=== PATIENT | male | born 1955 | race Caucasian/White ===

== ENCOUNTER 2016-12-25 07:32 | Day surgery (SDC) | payer OTHER ==
--- NOTE | 2016-12-20 14:46 | PREOPHP ---
DATE OF ADMISSION: 12/25/2016 HISTORY OF PRESENT ILLNESS: This is a 61-year-old patient who is admitted for elective surgery for mature cataract surgery of the left eye. The patient has had decreased vision in his eye for approximately one year time. Five years ago the patient underwent cataract surgery in the right eye with good visual result. The patient has a one year history of non-insulin dependent diabetes mellitus and has systemic hypertension. MEDICATIONS: Includes Metformin, Atorvastatin and Losartan, potassium chloride and aspirin (discontinued one week prior to surgery). ALLERGIES: THERE ARE NO KNOWN ALLERGIES. EXAMINATION: EYES: On examination, the visual acuity with best correction is 20/25 in the right eye and hand motions vision in the left eye. Slit lamp examination reveals a posterior chamber intraocular lens in appropriate position in the right eye, and a mature cataract in the left eye. Applanation tonometry 16 mmHg. Examination of the retina in the left eye cannot be seen due to the mature nature of the cataract. The retinal examination in the right eye appears within normal limits. DIAGNOSIS: Mature cataract, left eye. PLAN: Cataract extraction with lens implant, left eye. The risks and alternatives of the surgery have been discussed with the patient as well as the inability to prognosticate visual outcome, due to the inability to visualize the retina. The patient understands this, and agrees to proceed with surgery in hopes of improving visual acuity, leading to greater ability to perform activities of daily living. Dictated By: Rajesh Isaac MD /[email or web address] /Document#: [id number]
[2016-12-25] VITALS (8 sets, daily range): BP systolic 118–143; BP diastolic 79–89; PULSE 66–74; RESP 13–24; Ht 167.6 cm; Wt 103.2 kg
[~2016-12-25] VITALS: Ht 167.6 cm; Wt 103.2 kg
[~2016-12-25 07:32] MED LIST: ATROPINE 1 MG/10 ML SYRINGE IV PRN; CIPROFLOXACIN 0.3% 2.5 ML OPH OPER SCH; CYCLOPENTOLATE/PHENYLEPH 2 ML OPH OPER SCH; DICLOFENAC 0.1% 2.5 ML OPH OPER SCH; DIPHENHYDRAMINE 50 MG INJ IV PRN; EPHEDrine SULFATE 50 MG/5 ML SYG IV PRN; FENTAnyl 50 MCG/ML VIAL IV PRN; HYDROmorphONE (0.2 MG/ML) 10ML SYG IV PRN; LABETALOL HCL 20MG INJ IV PRN; LIDOCAINE 2% (SDV) 5 ML INJ ONE; MEPERIDINE 25 MG INJ IV PRN; MIDAZOLAM 1 MG/ML 2 ML INJ IV PRN; ONDANSETRON 4 MG INJ IV PRN; OXYCODONE/ACETAMINOPHEN (5/325) TAB PO PRN; PROPOFOL 200 MG INJ ONE; TROPICAMIDE 1% 3ML OPH OPER SCH; hydrALAzine 20 MG INJ IV PRN; morphine (1 MG/ML) 10ML SYRINGE IV PRN
[2016-12-25] MEDS ORDERED: LOSA25TA5 PO (08:13)
[2016-12-25] MEDS ORDERED: ASPI-664 PO (08:14)
[2016-12-25] MEDS ORDERED: METF500T4 PO (08:15)
--- NOTE | 2016-12-25 08:18 | HPN ---
Date/Time of Note Date/Time of Note DATE: 12/25/16 TIME: 08:17 Interval H&P Admission Note Pt. seen H&P reviewed: No system changes KASHIF SMITH MD Dec 25, 2016 08:18
[2016-12-25] MEDS ORDERED: EPINEPHrine 1 MG INJ ONE (09:25)
[2016-12-25] MEDS ORDERED: CEFAZOLIN 1 GM INJ ONE (09:25)
[2016-12-25] MEDS ORDERED: CARBACHOL 0.01% 1.5 ML OPH INJ ONE (09:25)
[2016-12-25] MEDS ORDERED: DEXAMETHASONE 4 MG/ML 1 ML INJ ONE (09:25)
[2016-12-25] MEDS ORDERED: GENTAMICIN 80 MG INJ ONE (09:26)
[2016-12-25] MEDS ORDERED: LIDOCAINE 4% (MPF) 5 ML INJ ONE (11:05)
--- NOTE | 2016-12-25 11:06 | HPN ---
Date/Time of Note Date/Time of Note DATE: 12/25/16 TIME: 11:06 Interval H&P Admission Note Pt. seen H&P reviewed: No system changes KASHIF SMITH MD Dec 25, 2016 11:06
--- NOTE | 2016-12-25 11:07 | SIPON ---
Date/Time of Note Date/Time of Note DATE: 12/25/16 TIME: 11:06 Operative Report Preoperative Diagnosis cataract Postoperative Diagnosis same Operation/Procedure Performed cataract surgery Surgeon: KASHIF SMITH MD Anesthesia Type: MAC Estimated Blood Loss: none Transfusion Required: no Specimen: none Grafts/Implants posterior chamber lens implant Complications: no KASHIF SMITH MD Dec 25, 2016 11:07
--- NOTE | 2016-12-25 11:41 | OPR ---
DATE OF OPERATION: 12/25/2016 PREOPERATIVE DIAGNOSIS: Mature cataract left eye. POSTOPERATIVE DIAGNOSIS: Mature cataract left eye. SURGEON: Dr. Rajesh Isaac ANESTHESIOLOGIST: Dr. Espinosa ANESTHESIA: Local standby. OPERATION: Phacoemulsification with posterior chamber intraocular lens implant, left eye. PROCEDURE: The patient was brought to the operating room and placed on the table with an IV in place and the patient attached to an satellite project site monitor. Oxygen was given via face mask. After some intravenous sedation was administered, local anesthesia was given using Xylocaine 2% with epinephrine, mixed with Marcaine 0.5%. This was given in a lid block and retrobulbar injection. The patient was then prepped and draped in the usual sterile manner. A wire lid speculum was inserted between the lids of the left eye. A Superblade was used to enter the anterior chamber at the corneoscleral limbus at the 10:30 o'clock position. A separate incision was made using a 3.0-mm keratome which entered the corneoscleral junction at the 12 o'clock position. Through this 3-mm opening, an irrigating cystotome was introduced into the anterior chamber. The chamber was filled with Viscoat and an anterior capsulotomy was performed. Balanced salt solution was then used for hydrodissection of the lens. A phacoemulsification handpiece was then brought into the field and introduced into the anterior chamber. The lens nucleus was emulsified using a deep groove and cracking the nucleus into quadrants. Following this, each quadrant was aspirated and emulsified at the pupillary margin. After this was completed, the irrigation/aspiration handpiece was brought to the field, introduced into the posterior chamber, and the lens cortical material was removed. When this was completed, additional Viscoat was injected into the anterior and posterior chambers. The 3-mm opening had its internal lips enlarged, and then the posterior chamber intraocular lens measuring 18.5 Diopters posterior chamber intraocular lens(Bausch and Lomb model LI61AO) was then injected into the posterior chamber using the lens injector system. The use of Provisc at the end of the procedure prior to insertion of the lens implant. After the leading haptic was introduced into the capsular bag and the lens optic was present in the center of the eye, the injector was removed and the trailing haptic was grasped with non-toothed forceps and introduced into the capsular fold superiorly. A Sinskey hook was then used to rotate the intraocular lens so that the lips were oriented in the horizontal meridian. One 10-0 nylon suture was placed across the wound. Prior to tying, the irrigation/aspiration handpiece was reintroduced into the anterior chamber to remove the Viscoat. Miochol was instilled to constrict the pupil, and then the 10-0 nylon suture was tied. The ends were cut short and then the knot was buried. Then, 0.5 mL of dexamethasone and 0.5 mL of Ancef were injected into the sub-Tenon space in the inferior fornix. Ciloxan drops were then placed on the surface of the eye. The speculum was removed and a patch was applied. The patient then left the operating room in satisfactory condition. Dictated By: Rajesh Isaac MD /[email or web address] /Document#: [id number]
== END 2016-12-25 12:51 | disposition home or self-care (01) ==
LOC: SDS 07:32
PROVIDERS: ATTEND Ophthalmology
DX: H25.12 Age-related nuclear cataract, left eye (principal); I10 Essential (primary) hypertension; E11.9 Type 2 diabetes mellitus without complications
CPT/HCPCS: 66984; 82962; J0171; J0690; J1100; J1580; V2632; Z7512; Z7610